=== PATIENT | male | born 1980 | race African-American/Black ===

== ENCOUNTER 2018-03-20 14:02 | Emergency (ER) | payer MEDICAID ==
[~2018-03-20] VITALS: Ht 185.4 cm; Wt 83.0 kg
[~2018-03-20 14:02] MED LIST: PHENERGAN SYRUP; VALIUM
[2018-03-20 14:22] VITALS: BP 118/63
== END 2018-03-20 17:07 | disposition home or self-care (01) ==
LOC: ER 15:16
DX: S63.91XA Sprain of unspecified part of right wrist and hand, initial encounter (principal); J45.909 Unspecified asthma, uncomplicated; F17.200 Nicotine dependence, unspecified, uncomplicated; Y04.0XXA Assault by unarmed brawl or fight, initial encounter; Y93.89 Activity, other specified; Y92.89 Other specified places as the place of occurrence of the external cause; Y99.8 Other external cause status
CPT/HCPCS: 73130; 99284

== ENCOUNTER 2018-10-31 01:40 | Emergency (ER) | payer MEDICAID ==
[~2018-10-31] VITALS: Ht 185.4 cm; Wt 73.0 kg
[2018-10-31] MEDS ORDERED: BACITRACIN ZINC OINT UDPKT TOP ONE (08:15)
[2018-10-31] MEDS ORDERED: TETANUS, DIPHTHERIA, PERTUSSIS VAC/PF 0.5ML (>7YR OLD) IM ONE (08:15)
[2018-10-31] MEDS ORDERED: IBUPROFEN 600MG TABLET PO ONE (08:15)
[2018-10-31] MEDS ORDERED: LIDOCAINE 1%/EPI 1:100,000 10 ML VIAL IJ ONE (08:15)
[2018-10-31 08:20] VITALS: BP 124/81
[2018-10-31] MEDS ORDERED: LIDOCAINE HCL/EPINEPHRINE 1%-EPI 1:100,000 20 ML VIAL INFIL NR (09:12)
== END 2018-10-31 10:00 | disposition left against medical advice (07) ==
LOC: ER 01:40
DX: S01.01XA Laceration without foreign body of scalp, initial encounter (principal); F10.10 Alcohol abuse, uncomplicated; Y90.9 Presence of alcohol in blood, level not specified; F12.10 Cannabis abuse, uncomplicated; W01.198A Fall on same level from slipping, tripping and stumbling with subsequent striking against other object, initial encounter; Y93.89 Activity, other specified; Y92.488 Other paved roadways as the place of occurrence of the external cause
CPT/HCPCS: 90471; 90715; 99283; J3490

== ENCOUNTER 2022-05-08 13:21 | Emergency (ER) | payer MEDICAID ==
[~2022-05-08] VITALS: Ht 185.4 cm; Wt 78.0 kg
[2022-05-08 13:27] VITALS: BP 131/90
[2022-05-08] MEDS ORDERED: IBUPROFEN 400MG TABLET PO ONE (15:45)
[2022-05-08] MEDS ORDERED: TETANUS, DIPHTHERIA, PERTUSSIS VAC/PF 0.5ML (>10YR OLD) IM ONE (15:45)
== END 2022-05-08 17:08 | disposition left against medical advice (07) ==
LOC: ER 13:21
DX: M25.522 Pain in left elbow (principal); Y08.89XA Assault by other specified means, initial encounter; Y93.89 Activity, other specified; Y92.89 Other specified places as the place of occurrence of the external cause; Y99.8 Other external cause status; F10.20 Alcohol dependence, uncomplicated; E78.00 Pure hypercholesterolemia, unspecified; F12.10 Cannabis abuse, uncomplicated; M25.521 Pain in right elbow
CPT/HCPCS: 90471; 90715; 99281; 99283

== ENCOUNTER 2022-05-30 04:30 | Emergency (ER) | payer MEDICAID, OTHER ==
[~2022-05-30] VITALS: Ht 185.4 cm; Wt 76.0 kg
[2022-05-30] MEDS ORDERED: IBUP-2029 MT (07:53)
[2022-05-30 08:09] VITALS: BP 127/86
== END 2022-05-30 08:10 | disposition home or self-care (01) ==
LOC: ER 04:30
DX: S50.02XA Contusion of left elbow, initial encounter (principal); M71.9 Bursopathy, unspecified; Y08.89XA Assault by other specified means, initial encounter; Y93.89 Activity, other specified; Y92.9 Unspecified place or not applicable
CPT/HCPCS: 73070; 73130; 99284

== ENCOUNTER 2023-03-07 09:31 | Emergency (ER) | payer MEDICAID, OTHER ==
[~2023-03-07] VITALS: Ht 185.4 cm; Wt 77.0 kg
[~2023-03-07 09:31] MED LIST changes: +IBUP-2029 MT
[2023-03-07] MEDS ORDERED: ACETAMINOPHEN 325MG TABLET PO ONE (10:00)
[2023-03-07] MEDS ORDERED: IBUP-2029 MT (12:08)
[2023-03-07] MEDS ORDERED: TOPUD MT (12:08)
[2023-03-07 12:46] VITALS: BP 132/86
== END 2023-03-07 12:47 | disposition home or self-care (01) ==
LOC: ER 09:31
DX: M54.2 Cervicalgia (principal); M54.50 Low back pain, unspecified; F12.10 Cannabis abuse, uncomplicated
CPT/HCPCS: 72040; 72100; 99284

== ENCOUNTER 2024-04-24 00:58 | Emergency (ER) | payer MEDICAID, OTHER ==
[~2024-04-24] VITALS: Ht 185.4 cm; Wt 88.0 kg
[~2024-04-24 00:58] MED LIST changes: +TOPUD MT
[2024-04-24 01:06] VITALS: O2SAT 98
[2024-04-24] MEDS ORDERED: IBUP-2029 MT (03:38)
[2024-04-24] MEDS ORDERED: CEPH500C2 MT (03:38)
[2024-04-24 03:52] VITALS: TEMP 98.5
[2024-04-24 03:58] VITALS: BP 120/87; PULSE 83; RESP 15
[2024-04-24] MEDS: IBUPROFEN 600MG TABLET PO ONE (03:58)
== END 2024-04-24 04:32 | disposition home or self-care (01) ==
LOC: ER 01:09
DX: L03.116 Cellulitis of left lower limb (principal); L97.228 Non-pressure chronic ulcer of left calf with other specified severity; F12.90 Cannabis use, unspecified, uncomplicated; F10.20 Alcohol dependence, uncomplicated; Y90.9 Presence of alcohol in blood, level not specified
CPT/HCPCS: 99283; Z7610 ×2

== ENCOUNTER 2024-05-29 04:07 | Emergency (ER) | payer MEDICAID ==
[~2024-05-29] VITALS: Ht 185.4 cm; Wt 78.0 kg
[~2024-05-29 04:07] MED LIST changes: +CEPH500C2 MT
[2024-05-29 04:15] VITALS: O2SAT 97
[2024-05-29] MEDS: ACETAMINOPHEN 325MG TABLET PO ONE (07:37)
[2024-05-29] MEDS ORDERED: NAPR-681 MT (08:38)
[2024-05-29 08:59] VITALS: BP 130/78; PULSE 77; RESP 16; TEMP 36.78072; O2SAT 97
== END 2024-05-29 08:58 | disposition home or self-care (01) ==
LOC: ER 04:07
DX: R51.9 Headache, unspecified (principal); F12.90 Cannabis use, unspecified, uncomplicated; F10.20 Alcohol dependence, uncomplicated; Z79.899 Other long term (current) drug therapy; Y90.9 Presence of alcohol in blood, level not specified
CPT/HCPCS: 99284